=== PATIENT | female | born 2000 | race Hispanic/Latino ===

== ENCOUNTER 2020-09-28 11:46 | Emergency (ER) | payer BC ==
[~2020-09-28] VITALS: Ht 162.6 cm; Wt 63.3 kg
[2020-09-28] MEDS ORDERED: BACTRIM DS TAB1 EACH PO (15:53)
[2020-09-28] MEDS ORDERED: BACITRACIN ZINC 15 GM OINT TOP STA (15:55)
[2020-09-28] MEDS ORDERED: KEFLEX500 MG PO (16:10)
[2020-09-28] MEDS ORDERED: HYDROXYCHLOROQ200 MG (16:44)
[2020-09-28 16:46] VITALS: BP 87/56
== END 2020-09-28 16:14 | disposition home or self-care (01) ==
LOC: FSED 15:39
DX: S61.217A Laceration without foreign body of left little finger without damage to nail, initial encounter (principal); W45.8XXA Other foreign body or object entering through skin, initial encounter; M32.9 Systemic lupus erythematosus, unspecified; L40.9 Psoriasis, unspecified; Z33.1 Pregnant state, incidental
CPT/HCPCS: 99283